=== PATIENT | male | born 1960 | race Caucasian/White ===

== ENCOUNTER 2021-11-25 04:15 | Emergency (ER) | payer OTHER, SELFPAY ==
[2021-11-25] VITALS (18 sets, daily range): BP systolic 116–147; BP diastolic 74–97; PULSE 70–138; RESP 12–26; TEMP 36.6; O2SAT 91–96
--- NOTE | ~2021-11-25 | CT_ITS ---
EXAMINATION: CT brain wo con DATE: 11/25/2021 05:08 INDICATION: Seizure. TECHNIQUE: Computed tomography (CT) of the head was performed without intravenous contrast. The mA wa s adjusted according to patient size. Iterative reconstruction technique was employed. The dose-lengt h product was 681.00 mGy-cm. COMPARISON: Brain MRI 06/12/2003 FINDINGS: There is no intracranial hemorrhage, acute infarction, or abnormal intracranial mass lesion . The ventricles are normal in size. There is mild mucosal thickening in the paranasal sinuses. The m astoid air cells are normal. There are old fracture deformities of the nasal bones. IMPRESSION: 1. Normal brain. Reviewed, dictated and finalized at location A. IMPRESSION: 1. Normal brain.
--- NOTE | ~2021-11-25 | XR_ITS ---
EXAMINATION: XR shoulder RT min 2V DATE: 11/25/2021 06:10 INDICATION: Shoulder pain post seizure TECHNIQUE: AP internally and externally rotated, AP oblique externally rotated and transscapular Y vi ews of the right shoulder were obtained. COMPARISON: None FINDINGS: Normal alignment at the right shoulder. No fracture.Mild right glenohumeral and acromioclavicular os teoarthritis. Soft tissues are unremarkable. This portion of the right lung is clear. IMPRESSION: Mild right acromioclavicular glenohumeral osteoarthritis. No acute osseous abnormalities. Reviewed, dictated and finalized at location A. IMPRESSION: Mild right acromioclavicular glenohumeral osteoarthritis. No acute osseous abno rmalities.
--- NOTE | 2021-11-25 04:18 | ECG_ITS ---
Measurements Intervals [place] Rate: 126 P: 19 [place]: 149 QRS: 57 QRSD: 100 T: 51 QT: 315 QTc: 457 Interpretive Statements SINUS TACHYCARDIA DELAYED PRECORDIAL R/S TRANSITION ABNORMAL ECG NO PREVIOUS ECG AVAILABLE FOR COMPARISON Electronically Signed On 11-25-2021 7:11:03 CDT by Papo Sandoval D.O.
[2021-11-25 04:27] LABS: Glucose Point of Care 126 mg/dl (65-105)
[2021-11-25 04:30] LABS: Basophils Percent Auto 0.3 % (0.2-1.2); Hemoglobin 12.8 g/dL (14.0-18.0); Immature Granulocyte Absolute 0.03 K/mm3 (0.00-0.031); Lymphocytes Absolute Auto 2.04 K/mm3 (0.9-3.2); Lymphocytes Percent Auto 66.2 % (18.3-44.2); Mean Corpuscular Hemoglobin 28.5 pg (26-34); Mean Corpuscular Volume 89.1 fl (80-100); Mean Platelet Volume 9.2 fl (7.4-10.4); Monocytes Absolute Auto 0.5 K/mm3 (0.1-0.6); Monocytes Percent Auto 14.6 % (2.6-8.5); Neutrophils Absolute Auto 0.6 K/mm3 (1.3-6.7); Neutrophils Percent Auto 17.9 % (45.5-73.1); Platelet Count Result 211 k/mm3 (150-375); Red Blood Count 4.49 M/mm3 (4.6-6.20); Red Cell Distribution Width 13.4 % (11.5-14.5); White Blood Count 3.1 K/mm3 (4.5-10.0)
--- NOTE | 2021-11-25 04:30 | ED.GENADULT ---
HPI - General Adult General Chief complaint: Seizure Stated complaint: seizure - last one 8 yrs ago Time Seen by Provider: 11/25/21 04:18 History of Present Illness HPI narrative: 61-year-old male with history of seizure presenting to the emergency department for evaluation after having first seizure in approximately 8 years. Patient was in bed when he had the seizure. states that the seizure lasted approximately 3 minutes and patient had a postictal phase close to 10 minutes. felt that the postictal phase was longer than usual. called EMS. Upon arrival to the emergency department patient is alert and appropriate. Patient does take Keppra for his seizures and does not suspect that he missed a dose. Patient states that he was up later than usual and that he had difficulty falling asleep even after going to bed late. Patient states he does feel tired but denies any other complaint. Patient has no shoulder injury. Patient did not bite his tongue. Patient denies missing any medications. Patient denies any recent illnesses coughs colds or fevers. Patient had previously taken both Dilantin and Keppra but only takes Keppra at this time. Related Data Home Medications Medication Instructions Recorded Confirmed finasteride 5 mg 11/25/21 levetiracetam 750 mg 11/25/21 lisinopril 11/25/21 tamsulosin 0.4 mg 11/25/21 Allergies Allergy/AdvReac Type Severity Reaction Status Date / Time No Known Allergies Allergy Verified 11/25/21 04:33 Review of Systems Review of Systems: CONSTITUTIONAL: Denies fever, chills, or sweats. EYES: Denies visual changes, redness, or discharge. ENT: Denies rhinorrhea, congestion, sore throat, or otalgia. CARDIOVASCULAR: Denies chest pain, palpitations, or edema. RESPIRATORY: Denies cough or dyspnea. GASTROINTESTINAL: Denies abdominal pain, nausea, vomiting, or diarrhea. GENITOURINARY: Denies dysuria or hematuria. SKIN: Denies rash or itching. MUSCULOSKELETAL: Denies back pain, joint pain, or myalgia. NEUROLOGIC: Seizure, see HPI PSYCHIATRIC: Denies anxiety or depression. Exam Narrative: APPEARANCE: Well appearing, no pain, no distress, well-nourished. HEAD: normocephalic, atraumatic. EYES: PERRLA/EOMI, conjunctivae clear. NOSE: Normal no drainage EARS:TMS clear with good light reflex. THROAT: Pharynx clear, no exudate. NECK: Supple. No adenopathy, no masses. RESPIRATORY: Airway patent, respirations nonlabored. Clear to auscultation bilaterally, no rales, rhonchi, wheezing. CARDIOVASCULAR: Regular rate and rhythm without murmurs rubs or gallops. ABDOMINAL: Soft, nontender, nondistended, normal bowel sounds MUSCULOSKELETAL: Moves all extremities. Strength/ROM intact, No edema, No calf tenderness. NEURO: Alert. Cranial nerves II through XII intact. Normal strength and reflexes, normal coordination, no drift or ataxia. Patient is alert and appropriate SKIN: Warm, dry. Normal Color Course Course Emergency Course: As the patient became more appropriate he recalls that he did miss his dose of Keppra. Patient states he usually gets his Keppra dose and a bottle but the only medication that they had available this month was in blister pack. Patient does not recall taking the blister pack last night. Patient's normal dose is 750 mg. Patient was treated with 1 g of Keppra IV. Vital Signs Vital signs: Vital Signs Temperature 97.8 F 11/25/21 04:15 Pulse Rate 135 H 11/25/21 04:15 Respiratory Rate 20 11/25/21 04:15 Blood Pressure 147/89 H 11/25/21 04:15 Pulse Oximetry 96 11/25/21 04:15 Oxygen Delivery Room Air 11/25/21 04:15 Temperature 97.8 F 11/25/21 04:15 Pulse Rate 70 11/25/21 07:03 Respiratory Rate 15 11/25/21 07:03 Blood Pressure 120/74 11/25/21 07:03 Pulse Oximetry 96 11/25/21 07:03 Oxygen Delivery Room Air 11/25/21 04:15 Medical Decision Making Vital Signs Vital Signs: Vital Signs Temperature 97.8 F 11/25/21 04:15 Pulse
[2021-11-25] MEDS: SODIUM CHLORIDE 0.9% IV 1,000 ML 999 ML IV CONT (04:36)
[2021-11-25 04:40] LABS: Alanine Aminotransferase 18 U/L (6-50); Albumin Level 4.3 g/dL (3.5-5.1); Alkaline Phosphatase 60 U/L (38-126); Anion Gap 15 mmol/L (8-16); Aspartate Amino Transferase 26 U/L (17-59); Bilirubin,Total 0.5 mg/dL (0.2-1.3); Blood Urea Nitrogen 16 mg/dL (9-20); Calcium 9.4 mg/dL (8.4-10.2); Carbon Dioxide 19 mmol/L (22-30); Chloride 108 mmol/L (98-107); Estimated Glomerular Filt Rate > 60; Glucose 131 mg/dL (65-110); Sodium 142 mmol/L (137-145)
[2021-11-25] MEDS: levETIRAcetam 1000MG/NACL100ML 1,000 MG/100 ML BAG 400 MG IVPB (04:43)
--- NOTE | 2021-11-25 04:47 | PC.NURSE ---
Patient being taken to CT via stretcher.
--- NOTE | 2021-11-25 05:23 | PC.NURSE ---
Patient calls this nurse into room to state I feel like my right shoulder is slipping out. When patient states this he rotates his right shoulder and states slipping out. Patient states this occurs with pain intermittently. ERP notified, orders placed. Patient instructed to let his arm/shoulder rest and xray is ordered. Sling being placed.
[2021-11-25 06:10] LABS: Appearance Urine Clear (Clear); Bilirubin Urine Negative (Negative); Blood Urine 1+ (Negative); Color Urine Yellow (Yellow); Glucose Urine UA Negative (Negative); Ketones Urine Negative (Negative); Leukocyte Esterase Ur Negative LEU/UL (Negative); Nitrate Urine Negative (Negative); Protein Urine Negative (Negative); Specific Grav Ur >= 1.030 (1.001-1.035); Urobilinogen Urine 0.2 mg/dL (<2.0); pH Urine 5.5 (5.0-9.0)
[2021-11-25 06:15] LABS: Mucus Urine Rare /lpf; WBC Urine 0-3 /hpf
[2021-11-25 06:23] LABS: Add Urine Microscopic? YES
[2021-11-28 10:48] LABS: Levetiracetam Keppra <2.0
== END 2021-11-25 07:05 | disposition home or self-care (01) ==
PROVIDERS: Emergency Provider Emergency Medicine; PCP Internal Medicine
DX: G40.909 Epilepsy, unspecified, not intractable, without status epilepticus (principal); S46.911A Strain of unspecified muscle, fascia and tendon at shoulder and upper arm level, right arm, initial encounter; W19.XXXA Unspecified fall, initial encounter
CPT/HCPCS: 36415; 70450; 73030; 80053; 80177; 81001; 82948; 85025; 93005; 96361; 96374; 99284; A4565; J1953; J7030

== ENCOUNTER 2022-06-26 16:33 | Outpatient (CLI) | payer OTHER, SELFPAY ==
--- NOTE | ~2022-06-26 | XR_ITS ---
EXAMINATION: XR chest 2V DATE: 06/26/2022 17:17 INDICATION: Cough TECHNIQUE: PA and lateral views of the chest are obtained. COMPARISON: 06/18/2022 FINDINGS: There are persistent airspace opacities of the left lower lobe without significant change. No pleural effusion or pneumothorax. The cardiomediastinal silhouette is normal. There is mild thorac ic spondylosis. Calcified pulmonary nodules and calcified bilateral hilar and mediastinal lymph nodes are consistent with old granulomatous disease. IMPRESSION: 1. Persistent airspace opacities of the left lower lobe, likely pneumonia. Consider followup radiogra phs or chest CT in six weeks if symptoms persist after appropriate therapy or if the patient is at hi gh risk for malignancy. Reviewed, dictated and finalized at location F. IMPRESSION: 1. Persistent airspace opacities of the left lower lobe, likely pneumonia. Cons ider followup radiographs or chest CT in six weeks if symptoms persist after ap propriate therapy or if the patient is at high risk for malignancy.
== END 2022-06-26 16:34 | disposition home or self-care (01) ==
LOC: CHSIMG 16:35
PROVIDERS: PCP Internal Medicine; Visit Provider Internal Medicine
DX: J18.9 Pneumonia, unspecified organism (principal); R05.9 Cough, unspecified; R91.8 Other nonspecific abnormal finding of lung field
CPT/HCPCS: 71046

== ENCOUNTER 2022-11-28 12:18 | Outpatient (CLI) | payer OTHER, SELFPAY ==
[2022-11-28 13:36] LABS: Prostate Specific Antigen 3.9 ng/mL (< OR = 4.0)
[2022-12-03 13:00] LABS: Reference Lab Test Name FLOW CYTOMETRY
== END 2022-11-28 12:19 | disposition home or self-care (01) ==
PROVIDERS: PCP Internal Medicine; Visit Provider Urology
DX: D72.820 Lymphocytosis (symptomatic) (principal); R97.20 Elevated prostate specific antigen [PSA]
CPT/HCPCS: 36415; 84153; 88184; 88185; 88189

== ENCOUNTER 2024-04-20 16:46 | Outpatient (CLI) | payer OTHER, SELFPAY ==
--- NOTE | ~2024-04-20 | XR_ITS ---
CHEST RADIOGRAPH, PA AND LATERAL CLINICAL HISTORY: COUGH . COMPARISON: 05/04/2023 TECHNIQUE: PA and lateral views of the chest. FINDINGS The cardiomediastinal silhouette is unremarkable. Multiple calcified granulomas within the bilateral lung davis, stable from prior. Redemonstration of linear densities within the left lung base, likely chronic. The remainder of the lungs are otherwise clear. IMPRESSION: Stable radiographic evaluation of the chest, without focal infiltrate or effusion. Reviewed, dictated and finalized at location A. [facility] IMPRESSION: Stable radiographic evaluation of the chest, without focal infiltrate or effusi on.
--- OUTSIDE RECORDS SUMMARY | 2024-04-20 16:50 | XMS_ITS | Referral Summary ---
Author Organization [facility] Address [address] [place] [address] Care Team Providers Care Manager Library Name Role Phone Kip Abreu MD Primary Care Provider [phone] Allergies Active Allergy Reactions Criticality Noted Date Comments Pollen Extracts Sneezing Low 06/08/2018 Medications levETIRAcetam (KEPPRA) 750 mg tablet 2 (two) times a day 0 9 Active tamsulosin (FLOMAX) 0.4 mg extended release capsule 2 capsules once daily 94 9 Active lisinopril (PRINIVIL,ZESTR IL) 20 mg tablet daily 0 9 Active cyanocobalamin, vitamin B-12, 1,000 mcg/mL drops Take by mouth daily Active acetaminophen-c odeine (TYLENOL with CODEINE #3) 300-30 mg per tabletIndicatio ns:Neoplasm of uncertain behavior of skin Take 1 tablet by mouth every 4 (four) hours as needed for pain 5 tablet 0 Active Additional Information Patient not taking.Reported on 06/14/2022 finasteride (PROSCAR) 5 mg tablet Take 1 tablet (5 mg total) by mouth daily 3 Active albuterol HFA (PROVENTIL HFA,VENTOLIN HFA,PROAIR HFA) 90 mcg/actuation inhalerIndicati ons:Wheezing Inhale 2 puffs every 6 (six) hours as needed for wheezing 3 each 4 3 Active Active Problems No known active problems Immunizations Name Administration Dates Next Due Flucelvax Influenza Quad MDI 12/28/2013 Influenza, Quadrivalent, Lisa l Culture-based MDCK, Preservative Free, Antibiotic Free, Intramuscular 12/09/2019 Influenza, Quadrivalent, Spl it, Preservative Free, Intramuscular 12/16/2018 Influenza, Trivalent, IM (MDV) 01/02/2015 Influenza, Unspecified 12/20/2015 Tdap 07/22/2013 ZOSTER Recombinant 05/20/2018,10/26/2017 Social History Tobacco Use Types Packs/Day Years Used Date Smoking Tobacco: Former Smokeless Tobacco: Never Comments:Ocassionally while in Personal Safety Answer Date Recorded Getting School Help Needed Not on file 02/23 Sex and Gender Information Value Date Recorded Sex Assigned at Not on file 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 Gender Identity Not on file Sexual Orientation Not on file Last Filed Vital Signs Vital Sign Reading Time Taken Comments Blood Pressure 116/79 10/08/2023 2:12 PM CDT Pulse 83 10/08/2023 2:12 PM CDT Temperature 36.3 C (97.3 F) 10/08/2023 2:12 PM CDT Respiratory Rate 18 02/26/2023 2:06 PM ELECTRONIC SCALE TESTER Oxygen Saturation 95% 10/08/2023 2:12 PM CDT Inhaled Oxygen Concentration - - Weight 102.9 kg (226 lb 12.8 oz) 10/08/2023 2:12 PM CDT Height 188.5 cm (6' 2.21 ) 10/08/2023 2:12 PM CD T Body Mass Index 28.95 10/08/2023 2:12 PM CDT Plan of Treatment Not on file Insurance [employer] OPEN ACCESS [employer] OPEN ACCESS [employer] OPEN ACCESS Care Teams Manager Library Relationship Specialty Start Date End Date Kip Abreu MD [address] [place] [address] PCP - General 06/03/17
--- OUTSIDE RECORDS SUMMARY | 2024-04-20 16:50 | XMS_ITS | Encounter Summary ---
Author Organization [facility] Address [address] [place] [address] Phone Care Team Providers Care Securities Trader Name Role Phone Kip Abreu MD Primary Care Provider [phone] Encounter Details Date Type Department Care Team (Latest Contact Info) Description 01/03/2020 Orders Only [facility] Scanning, Provider Social History Tobacco Use Types Packs/Day Years Used Date Smoking Tobacco: Former Smokeless Tobacco: Never Comments:Ocassionally while in Sex and Gender Information Value Date Recorded Sex Assigned at Not on file Legal Sex Male 4:53 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 Gender Identity Not on file Sexual Orientation Not on file documented as of this encounter Plan of Treatment Not on file documented as of this encounter Procedures Procedure Name Priority Date/Time Associated Diagnosis Comments SCAN - LABS 01/03/2020 documented in this encounter Results * SCAN - LABS (01/03/2020) us Provider Scanning Final Result documented in this encounter Visit Diagnoses Not on filedocumented in this encounter Care Teams Securities Trader Relationship Specialty Start Date End Date Kip Abreu MD [address] [place] [address] PCP - General 06/03/17 documented as of this encounter
--- OUTSIDE RECORDS SUMMARY | 2024-04-20 16:50 | XMS_ITS | Encounter Summary ---
Author Organization [facility] Address [address] [place] [address] Phone Care Team Providers Care Graphite Disk Assembler Name Role Phone Kip Abreu MD Primary Care Provider [phone] Encounter Details Date Type Department Care Team (Latest Contact Info) Description 07/14/2023 Orders Only [facility] Scanning, Provider Social History Tobacco Use Types Packs/Day Years Used Date Smoking Tobacco: Former Smokeless Tobacco: Never Comments:Ocassionally while in Personal Safety Answer Date Recorded Getting School Help Needed Not on file 02/23 Sex and Gender Information Value Date Recorded Sex Assigned at Not on file 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 Gender Identity Not on file Sexual Orientation Not on file documented as of this encounter Plan of Treatment Not on file documented as of this encounter Procedures Procedure Name Priority Date/Time Associated Diagnosis Comments SCAN - LABS 07/14/2023 documented in this encounter Results * SCAN - LABS (07/14/2023) us Provider Scanning Final Result documented in this encounter Visit Diagnoses Not on filedocumented in this encounter Care Teams Graphite Disk Assembler Relationship Specialty Start Date End Date Kip Abreu MD [address] [place] [address] PCP - General 06/03/17 documented as of this encounter
--- OUTSIDE RECORDS SUMMARY | 2024-04-20 16:50 | XMS_ITS | Encounter Summary ---
Author Organization [facility] Address [address] [place] [address] Phone Care Team Providers Care Bakery Worker Conveyor Line Name Role Phone Kip Abreu MD Primary Care Provider Encounter Details Date Type Department Care Team (Late st Contact Info) Description 02/25/2019 Orders Only [facility] Scanning, Provider Social History Tobacco Use Types Packs/Day Years Used Date Smoking Tobacco: Former Smokeless Tobacco: Never Comments:Ocassionally while in Sex and Gender Information Value Date Recorded Sex Assigned at Not on file Legal Sex Male 4:53 AM 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 PRODUCE SORTER Gender Identity Not on file Sexual Orientation Not on file documented as of this encounter Plan of Treatment Not on file documented as of this encounter Procedures Procedure Name Priority Date/Time Associated Diagnosis Comments SCAN - LABS 02/25/2019 documented in this encounter Results * SCAN - LABS (02/25/2019) us Provider Scanning Final Result documented in this encounter Visit Diagnoses Not on filedocumented in this encounter Care Teams Bakery Worker Conveyor Line Relationship Specialty Start Date End Date Kip Abreu MD [address] [place] [address] PCP - General 06/03/17 documented as of this encounter
--- OUTSIDE RECORDS SUMMARY | 2024-04-20 16:50 | XMS_ITS | Clinical Summary ---
Author Organization [facility] Address [address] [place] [address] Care Team Providers Care Public Health Doctor Name Role Phone Kip Abreu MD Primary Care Provider [phone] Allergies Active Allergy Reactions Criticality Noted Date [...] Unspecified 12/20/2015 Tdap 07/22/2013 ZOSTER Recombinant 05/20/2018,10/26/2017 Surgical History Surgery Date Site/Laterality Comments SINUS SURGERY Medical History Medical History Date Comments Seizure disorder (CMS/HCC) (HCC) Hypertension Elevated PSA BPH (benign prostatic hyperplasia) Prostatitis NEHA (obstructive sleep apnea) Chronic rhinitis Family History Medical History Relation Name Comments No Known Problems Father Hypertension Mother Relation Name Status Comments Father Alive Mother Alive Social History Tobacco Use Types Packs/Day Years Used Date Smoking Tobacco: Former Smokeless Tobacco: Never Comments:Ocassionally while in INDOM Personal Safety Answer Date Recorded Getting School Help Needed Not on file 02/23 Sex and Gender Information Value Date Recorded Sex Assigned at Not on file Legal Sex Male 4:53 AM SALES ADMINISTRATION SPECIALIST Gender Identity Not on file Sexual Orientation Not on file Obstetrics History Last Filed Vital Signs Vital Sign Reading Time Taken Comments Blood Pressure 116/79 10/08/2023 2:12 PM CDT Pulse 83 10/08/2023 2:12 PM CDT Temperature 36.3 C (97.3 F) 10/08/2023 2:12 PM CDT Respiratory Rate 18 02/26/2023 2:06 PM SALES ADMINISTRATION SPECIALIST Oxygen Saturation 95% 10/08/2023 2:12 PM CDT Inhaled Oxygen Concentration - - Weight 102.9 kg (226 lb 12.8 oz) 10/08/2023 2:12 PM CDT Height 188.5 cm (6' 2.21 ) 10/08/2023 2:12 PM CD T Body Mass Index 28.95 10/08/2023 2:12 PM CDT Plan of Treatment Health Maintenance Due Date Last Done Comments Colon Cancer Screening-Colonoscopy 1960 Depression Screening 1960 Hepatitis C Screening 1960 Prostate Cancer Screening-PSA 1960 Pneumococcal vaccine <65 (1 of 2 - PCV) 02/05/1966 Hepatitis B Screening 02/05/1978 Regular Well Visit/Exam 18-64 02/05/1978 DTaP/Tdap/Td Vaccine (2 - Td or Tdap) 07/23/2023 07/22/2013 Influenza Vaccine (#1) 2023 , 12/16/2018, 12/20/2015, Additional history exists Zoster Vaccine Completed 05/20/2018, 10/26/2017 Insurance [employer] OPEN ACCESS [employer] OPEN ACCESS Care Teams Public Health Doctor Relationship Specialty Start Date End Date Kip Abreu MD [address] [place] [address] PCP - General 06/03/17
--- OUTSIDE RECORDS SUMMARY | 2024-04-20 16:50 | XMS_ITS | Encounter Summary ---
Author Organization [facility] Address [address] [place] [address] Phone Care Team Providers Care Riddler Operator Name Role Phone Kip Abreu MD Primary Care Provider [phone] Encounter Details Date Type Department Care Team (Latest Contact Info) Description 12/14/2019 Orders Only [facility] Scanning, Provider Social History Tobacco Use Types Packs/Day Years Used Date Smoking Tobacco: Former Smokeless Tobacco: Never Comments:Ocassionally while in Sex and Gender Information Value Date Recorded Sex Assigned at Not on file Legal Sex Male 4:53 AM LIFE SCIENCES TEACHER Gender Identity Not on file Sexual Orientation Not on file documented as of this encounter Plan of Treatment Not on file documented as of this encounter Procedures Procedure Name Priority Date/Time Associated Diagnosis Comments SCAN - LABS 12/14/2019 documented in this encounter Results * SCAN - LABS (12/14/2019) us Provider Scanning Final Result documented in this encounter Visit Diagnoses Not on filedocumented in this encounter Care Teams Riddler Operator Relationship Specialty Start Date End Date Kip Abreu MD [address] [place] [address] PCP - General 06/03/17 documented as of this encounter
--- OUTSIDE RECORDS SUMMARY | 2024-04-20 16:50 | XMS_ITS | Encounter Summary ---
Author Organization [facility] Address [address] [place] [address] Phone Care Team Providers Care Book Salesman Name Role Phone Kip Abreu MD Primary Care Provider [phone] Encounter Details Date Type Department Care Team (Latest Contact Info) Description 07/20/2023 Orders Only [facility] Scanning, Provider Social History Tobacco Use Types Packs/Day Years Used Date Smoking Tobacco: Former Smokeless Tobacco: Never Comments:Ocassionally while in Personal Safety Answer Date Recorded Getting School Help Needed Not on file 02/23 Sex and Gender Information Value Date Recorded Sex Assigned at Not on file Legal Sex Male 4:53 AM SAMPLE GRINDER Gender Identity Not on file Sexual Orientation Not on file documented as of this encounter Plan of Treatment Not on file documented as of this encounter Procedures Procedure Name Priority Date/Time Associated Diagnosis Comments SCAN - LABS 07/20/2023 documented in this encounter Results * SCAN - LABS (07/20/2023) us Provider Scanning Final Result documented in this encounter Visit Diagnoses Not on filedocumented in this encounter Care Teams Book Salesman Relationship Specialty Start Date End Date Kip Abreu MD [address] [place] [address] PCP - General 06/03/17 documented as of this encounter
--- OUTSIDE RECORDS SUMMARY | 2024-04-20 16:50 | XMS_ITS | Clinical Summary ---
Author Organization [facility] Address [facility] [place] [address] Care Team Providers Care Glue Maker Bone Name Role Phone Unavailable Primary Care Provider Unavailabl e Social History Tobacco Use Types Packs/Day Years Used Date Smoking Tobacco: Former Sex and Gender Information Value Date Recorded Sex Assigned at Not on file Legal Sex Male 11:02 PM CDT Gender Identity Not on file Sexual Orientation Not on file Plan of Treatment Health Maintenance Due Date Last Done Comments Colorectal Cancer Screening Colonoscopy (10 Years) 1960 Annual Physical 02/05/1963 Hepatitis C 02/05/1978 DTaP, Tdap and Td Vaccines ( 1 - Tdap) 02/05/1979 Zoster Vaccines (1 of 2) 02/05/2010 COVID-19 Vaccine (2023-2 5 season) 2023 Influenza Adult (#1) 2023 RSV Immunization or 60+ Years (1 - 1-dose 75+ series) 02/05/2035 Meningococcal B Vaccine Aged Out No l onger eligible based on patient's age to complete this topic Meningococcal Vaccine Aged Out No vishnu heather eligible based on patient's age to complete this topic Pneumococcal Vaccine: Pediat rics (0 to 5 Years) and At-Risk Patients (6 to 64 Years) Aged Out No longer eligible b ased on patient's age to complete this topic RSV Immunizations Under 20 Months Aged Out No longer eligible based on patient's age to complete this topic
[2024-04-20 18:27] LABS: SARS-CoV-2 RNA PCR Negative (Negative)
[2024-04-20 18:28] LABS: Influenza A QL RT-PCR Positive (Negative); Influenza B QL RT-PCR Negative (Negative); RSV RNA, RT-PCR Negative (Negative)
== END 2024-04-20 16:47 | disposition home or self-care (01) ==
PROVIDERS: PCP Internal Medicine; Visit Provider Internal Medicine
DX: R05.9 Cough, unspecified (principal)
CPT/HCPCS: 71046; 87637

== ENCOUNTER 2025-03-03 11:12 | Emergency (ER) | payer OTHER, SELFPAY ==
--- NOTE | ~2025-03-03 | CT_ITS ---
EXAMINATION: CT abdomen pelvis w con DATE: 03/03/2025 12:52 INDICATION: Right lower quadrant abdominal pain TECHNIQUE: Computed tomography (CT) of the abdomen and pelvis was performed with 100 mL Omnipaque-350 intravenous contrast. Automated exposure control and iterative reconstruction technique were employed. The dose-length product was 451.97 mGy-cm. COMPARISON: None FINDINGS: Discoid atelectasis in the bilateral lower lobes and in the posterior lingula. There are multiple small calcified nodules in the lingula and anterobasilar left lower lobe which along with a few scattered hepatic and multiple scattered splenic calcifications are consistent with old granulomatous disease. Tiny bilateral pleural effusions. Heart size is normal. Small pericardial effusion. Multiple scattered low-attenuation hepatic cysts the largest measuring 1.8 cm and the left hepatic lobe and the majority measuring less than 1 cm. Calcified gallstones in the nondilated gallbladder with no wall thickening or pericholecystic infiltrate showing to suggest acute cholecystitis. Common bile duct is normal in caliber and there is no intrahepatic biliary ductal dilation Spleen, pancreas and bilateral adrenal glands are normal. Again seen are numerous lesions throughout both kidneys the majority demonstrating low- attenuation consistent with simple cysts. There are also several at both kidneys with higher attenuation most likely to represent additional complex proteinaceous/hemorrhagic cyst although in the absence of noncontrast imaging to assess for enhancement solid neoplasm cannot be excluded for any of the individual intermediate attenuation lesions. There is. Right perinephric fluid and stranding with right retroperitoneal edema extending caudally along the aorta and inferior vena cava. Extensive colonic diverticulosis with descending and sigmoid colon predominance and without adjacent inflammatory stranding to suggest diverticulitis. Small bowel and appendix are normal. Bladder is normal. Prostatomegaly measuring 5.0 x 4.3 cm. 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 Minimal nonspecific ascites in the deep pelvis which may be reactive. No abscess or free intraperineal gas. No pathologically enlarged abdominal or pelvic lymphadenopathy. Mild to moderate lumbar and lower thoracic spondylosis. L1 hemangioma with characteristic thickened vertical trabecular pattern. . IMPRESSION: 1. Again seen are numerous bilateral simple and complex renal cysts now with asymmetric perinephric fluid and stranding about the right kidney suggesting possible right renal cyst rupture. Differential would include less likely acute interstitial pancreatitis or duodenitis. Correlate with lipase levels. Of note, in the absence of noncontrast imaging to assess for enhancement, renal neoplasm cannot be excluded for any of the individual renal lesions with greater than simple fluid attenuation. 2. Tiny bilateral pleural effusions and small pericardial effusion. 3. Minimal amount of nonspecific likely reactive ascites in the deep pelvis. 4. Cholelithiasis without findings of acute cholecystitis or biliary ductal dilation.. 5. Prostatomegaly. Reviewed, dictated and finalized at location A. RAGE INSPECTION MACHINE TENDER IMPRESSION: 1. Again seen are numerous bilateral simple and complex renal cysts now with as ymmetric perinephric fluid and stranding about the right kidney suggesting poss ible right renal cyst rupture. Differential would include less likely acute int erstitial pancreatitis or duodenitis. Correlate with lipase levels. Of note, in the absence of noncontrast imaging to assess for enhancement, renal neoplasm c annot be excluded for any of the individual renal lesions with greater than sim ple fluid attenuation. 2. Tiny bilateral pleural effusions and small pericardial effusion. 3. Minimal amount of nonspecific likely reactive ascites in the deep pelvis. 4. Cholelithiasis without findings of acute cholecystitis or biliary ductal dil ation.. 5. Prostatomegaly.
[2025-03-03 11:16] VITALS: BP 143/70; PULSE 55; RESP 18; TEMP 36.6; O2SAT 100
--- OUTSIDE RECORDS SUMMARY | 2025-03-03 11:44 | XMS_ITS | Encounter Summary ---
Author Organization [facility] Address [address] [place] [address] Phone Care Team Providers Care Club Director Name Role Phone Kip Abreu MD Primary Care Provider [phone] Encounter Details Date Type Department Care Team [...] on file Legal Sex Male 4:53 AM STITCH WHEELER Gender Identity Not on file Sexual Orientation [...] on filedocumented in this encounter Care Teams Club Director Relationship Specialty Start Date End Date Kip Abreu MD [address] [place] [address] PCP - General 06/03/17 documented as of this encounter
--- OUTSIDE RECORDS SUMMARY | 2025-03-03 11:44 | XMS_ITS | Clinical Summary ---
Author Organization [facility] Address [facility] [place] [address] Care Team Providers Care Bunk House Worker Name Role Phone Unavailable Primary Care Provider [...] Colorectal Cancer Screening Colonoscopy (10 Years) 1960 Hepatitis C 02/05/1978 DTaP, Tdap and Td Vaccines ( 1 - Tdap) 02/05/1979 Pneumococcal Vaccine: 50+ Ye ars (1 of 1 - PCV) 02/05/2010 Zoster Vaccines (1 of 2) 02/05/2010 COVID-19 Vaccine ( - 2024-2 6 season) 2024 Influenza Adult (#1) 2024 RSV Immunization or 60+ Years (1 - 1-dose 75+ series) 02/05/2035 Hepatitis A Vaccines Aged Out No long er eligible based on patient's age to complete this topic Meningococcal B Vaccine Aged Out No l onger eligible based on patient's age to complete this topic Meningococcal Vaccine Aged Out No vishnu heather eligible based on patient's age to complete this topic RSV Immunizations Under 20 Months Aged Out No longer eligible based on patient's age to complete this topic
--- OUTSIDE RECORDS SUMMARY | 2025-03-03 11:44 | XMS_ITS | Encounter Summary ---
Author Organization 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
--- OUTSIDE RECORDS SUMMARY | 2025-03-03 11:44 | XMS_ITS | Encounter Summary ---
Author Organization [facility] Address [address] [place] [address] Phone Care Team Providers Care Apprentice Architect Name Role Phone Kip Abreu MD Primary Care Provider [phone] Encounter Details Date Type Department Care Team (Latest Contact Info) Description 01/03/2020 Orders Only [facility] Scanning, Provider Social History Tobacco Use Types Packs/Day Years Used Date Smoking Tobacco: Former Smokeless Tobacco: Never Comments:Ocassionally while in Sex and Gender Information Value Date Recorded Sex Assigned at Not on file 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
--- OUTSIDE RECORDS SUMMARY | 2025-03-03 11:44 | XMS_ITS | Clinical Summary ---
Author Organization [facility] Address [address] [place] [address] Care Team Providers Care Manager Fine Name Role Phone Kip Abreu MD Primary Care Provider [phone] Allergies Active Allergy Reactions Criticality Noted Date [...] Active Problems No known active problems Immunizations Immunization Administration Dates Next Due Flucelvax Influenza Quad MDI 12/28/2013 Influenza, Quadrivalent, Lisa l Culture-based MDCK, Preservative Free, Antibiotic Free, Intramuscular 12/09/2019 Influenza, Quadrivalent, Spl it, Preservative Free, Intramuscular 12/16/2018 Influenza, Trivalent, IM (MDV) 01/02/2015 Influenza, Unspecified 12/20/2015 Tdap 07/22/2013 ZOSTER Recombinant 05/20/2018,10/26/2017 Surgical History Surgery Date Site/Laterality Comments SINUS SURGERY Medical History Medical History Date Comments Seizure disorder (HCC) Hypertension Elevated PSA BPH (benign prostatic [...] on file 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 Gender Identity Not on file Sexual Orientation Not on file Last Filed Vital Signs Vital Sign Reading Time Taken Comments Blood Pressure 116/79 10/08/2023 2:12 PM CDT Pulse 83 10/08/2023 2:12 PM CDT Temperature 36.3 C (97.3 F) 10/08/2023 2:12 PM CDT Respiratory Rate 18 02/26/2023 2:06 PM LAYOUT WORKER Oxygen Saturation 95% 10/08/2023 2:12 PM CDT Inhaled Oxygen Concentration - - Weight 102.9 kg (226 lb 12.8 oz) 10/08/2023 2:12 PM CDT Height 188.5 cm (6' 2.21) 10/08/2023 2:12 PM CD T Body Mass Index 28.95 10/08/2023 2:12 PM CDT Plan of Treatment Health Maintenance Due Date Last Done Comments Colon Cancer Screening-Colonoscopy 1960 Depression Screening 1960 Fall Risk Assessment 1960 Hepatitis C Screening 1960 Prostate Cancer Screening-PSA 1960 Hepatitis B Screening 02/05/1978 Pneumococcal vaccine 65+ (1 of 1 - PCV) 02/05/2010 DTaP/Tdap/Td Vaccine (2 - Td or Tdap) 07/23/2023 07/22/2013 Influenza Vaccine (#1) 2024 0, 12/16/2018, 12/20/2015, Additional history exists Abdominal Aortic Aneurysm (A AA) Screen 02/05/2025 Well Visit 65+ 02/05/2025 Zoster Vaccine Completed 05/20/2018, 10/26/2017 Insurance [employer] OPEN ACCESS HEALTHLINK OPEN ACCESS [employer] OPEN ACCESS Care Teams Manager Fine Relationship Specialty Start Date End Date Kip Abreu MD [address] [place] [address] PCP - General 06/03/17
--- OUTSIDE RECORDS SUMMARY | 2025-03-03 11:44 | XMS_ITS | Encounter Summary ---
Author Organization [facility] Address [address] [place] [address] Phone Care Team Providers Care Bereavement Program Coordinator Name Role Phone Kip Abreu MD Primary Care Provider [phone] Encounter Details Date Type Department Care Team (Latest Contact Info) Description 12/14/2019 Orders Only [facility] Scanning, Provider Social History Tobacco Use Types Packs/Day Years Used Date Smoking Tobacco: Former Smokeless Tobacco: Never Comments:Ocassionally while in Sex and Gender Information Value Date Recorded Sex Assigned at Not on file 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
--- OUTSIDE RECORDS SUMMARY | 2025-03-03 11:44 | XMS_ITS | Encounter Summary ---
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
[2025-03-03 12:13] LABS: Hematocrit 37.7 % (42.0-52.0); Hemoglobin 12.1 g/dL (14.0-18.0); Immature Granulocyte Percent A 1.6 % (0-0.5); Lymphocytes Absolute Auto 0.79 K/mm3 (0.9-3.2); Mean Corpuscular HGB Conc 32.1 g/dl (32-36); Mean Corpuscular Hemoglobin 27.3 pg (26-34); Mean Corpuscular Volume 85.1 fl (80-100); Nucleated Red Blood Cells Absolute Auto 0.000 K/mm3 (0.0-0.012); Nucleated Red Blood Cells Perc 0.0 % (0.0-0.2); Platelet Count Result 213 k/mm3 (150-375); Red Blood Count 4.43 M/mm3 (4.6-6.20); White Blood Count 4.4 K/mm3 (4.5-10.0)
[2025-03-03] MEDS: SODIUM CHLORIDE 0.9% IV 1,000 ML 999 ML IV CONT (12:13)
[2025-03-03] MEDS: MORPHINE SULFATE (*CRX) 4 MG/ML INJ IV PUSH (12:14)
[2025-03-03] MEDS: ONDANSETRON INJ 4 MG/2 ML VIAL IV PUSH (12:14)
[2025-03-03 12:25] LABS: INR 1.1; Prothrombin Time 14.2 Seconds (11.1-14.7)
[2025-03-03 12:27] LABS: Partial Thromboplastin Time 29.9 Seconds (22.3-36.8)
[2025-03-03 12:27] LABS: Add Urine Microscopic? YES; Appearance Urine Clear (Clear); Glucose Urine UA Negative (Negative); Leukocyte Esterase Ur 1+ LEU/UL (Negative); Need Manual Microscopic Reviewed; Nitrate Urine Negative (Negative); Non Pathogenic Casts 0-2; Specific Grav Ur 1.028 (1.001-1.035)
[2025-03-03 12:31] LABS: Alanine Aminotransferase 13 U/L (6-50); Albumin Level 4.3 g/dL (3.5-5.1); Alkaline Phosphatase 73 U/L (38-126); Anion Gap 8 mmol/L (4-12); Aspartate Amino Transferase 26 U/L (17-59); Bilirubin,Total 0.5 mg/dL (0.2-1.3); Blood Urea Nitrogen 22 mg/dL (9-20); Calcium 10.3 mg/dL (8.4-10.2); Carbon Dioxide 25 mmol/L (22-30); Chloride 106 mmol/L (98-107); Estimated CRCL calculation 56 ml/min; Estimated Glomerular Filt Rate 49; Glucose 115 mg/dL (65-110); Lipase 71 U/L (23-300); Potassium 4.5 mmol/L (3.4-5.0); Sodium 139 mmol/L (137-145); Total Protein 7.3 g/dL (6.3-8.2)
[2025-03-03] MEDS: KETOROLAC 15 MG/ML VIAL (*BKC) IV PUSH (12:55)
--- NOTE | 2025-03-03 13:56 | ED_ITS ---
HPI - General Adult General Chief complaint: Abdominal Pain Stated complaint: RLQ pain since this am Time Seen by Provider: 03/03/25 11:41 History of Present Illness HPI narrative: Patient is a 65-year-old male who presents ER with right-sided abdominal pain. Began having pain in his right back last night around 1:00 a.m.. Is since progressed to right lower quadrant abdominal pain. It comes in waves associated with nausea. Has history of having pain on left side but has never passed a kidney stone. No known renal cysts. He does still have his appendix. No diarrhea. No alleviating factors other than rest. Related Data Home Medications ?Medication ?Instructions ?Recorded ?Confirmed ?Last Taken ?Type levetiracetam 750 mg tablet 750 mg PO DAILY 01/25/20 1 03/26/19 02/01/20 History lisinopril 20 mg tablet 20 mg PO DAILY 01/25/2001/1402/01/20 History tamsulosin 0.4 mg capsule 0.4 mg PO DAILY 01/25/2002/0202/01/20 History finasteride 5 mg 11/25/21 Unknown Histo ry levetiracetam 750 mg 11/25/21 Unknown His tory lisinopril 11/25/21 Unknown History tamsulosin 0.4 mg 11/25/21 Unknown His tory Allergies Allergy/AdvReac Type Severity Reaction Status Date / Time Bumble Bee Allergy Mild LOCALIZED Uncoded 06/28/24 12:06 SWELLING Review of Systems 2 Review of Systems: All systems reviewed & are unremarkable except as noted in HPI and below Constitutional: Constitutional: Reports no additional constitutional complaints Cardiovascular: Cardiovascular: Reports no additional cardiovascular complaints Respiratory: Respiratory: Reports no additional respiratory complaints Gastrointestinal: Gastrointestinal: Reports no additional gastrointestinal complaints Genitourinary: Genitourinary: Reports no additional male genitourinary complaints [facility] Past Medical History Medical History (Updated 03/03/25 @ 14:04 by Dmitri Perdue MD) BPH (benign prostatic hyperplasia) Seizure HTN (hypertension) Social History Social History (System 06/28/24 @ 12:06 by Ethan Oliveira) Alcohol intake: current Drinks per week: 1 Living arrangements: with family Gender identity (if verbalized by the patient): Male Spiritual care concerns: No Exam 2 Narrative: GENERAL: Uncomfortable-appearing, well-nourished, and in no acute distress. HEAD: Normocephalic, atraumatic. ENT: Mucous membranes moist. NECK: Supple. CHEST: Clear to auscultation. No respiratory distress. HEART: Regular rate and rhythm. Normal peripheral pulses. ABDOMEN: Soft, TTP RLQ with guarding, nondistended. EXTREMITIES: Normal range of motion. No edema. SKIN: Warm, dry, no rash. NEURO: Alert and oriented x3. PSYCH: Normal mood and affect. Course Course Emergency Course: Discussed passing renal stone. Patient also has some large gallstones that he is educated about. He should pass his stones soon. He received 1 L IV fluid. Pain improving with low-dose Toradol. Discharge home and follow-up with PCP. He has Flomax already. Vital Signs Vital signs: Vital Signs Temperature 97.9 F 03/03/25 11:16 Pulse Rate 55 L 03/03/25 11:16 Respiratory Rate 18 03/03/25 11:16 Blood Pressure 143/70 H 03/03/25 11:16 Pulse Oximetry 100 03/03/25 11:16 Oxygen Delivery Room Air 03/03/25 11:16 Temperature 97.9 F 03/03/25 11:16 Pulse Rate 55 L 03/03/25 11:16 Respiratory Rate 18 03/03/25 11:16 Blood Pressure 143/70 H 03/03/25 11:16 Pulse Oximetry 100 03/03/25 11:16 Oxygen Delivery Room Air 03/03/25 11:16 MDM Differential Diagnosis Differential Diagnosis: Appendicitis, kidney stones, diverticulitis, UTI, AAA Lab Data [facility] Lab Attestation statement: I personally reviewed the patient's lab results. 03/03/25 12:04 03/03/25 12:04 Labs: Lab Results 03/03/25 03/03/25 Range/Units 12:04 12:08 WBC 4.4 L (4.5-10.0) K/mm3 RBC 4.43 L (4.6-6.20) M/mm3 Hgb 12.1 L (14.0-18.0) g/dL Hct 37.7 L (42.0-52.0) % MCV 85.1 (80-100) fl MCH 27.3 (26-34) pg MCHC 32.1 (32-36) g/dl RDW 13.6 (11.5-14.5) % Plt Count 213 (150-375) k/mm3 MPV 9.5 (7.4-10.4) fl Immature Gran % (Auto) 1.6 H (0-0.5) % Neut % (Auto) 66.6 (45.5-73.1) % Lymph % (Auto) 17.8 L (18.3-44.2) % Drew % (Auto) 13.8 H (2.6-8.5) % Eos % (Auto) 0.2 (0-4.4) % Baso % (Auto) 0.0 L (0.2-1.2) % Lymph # (Auto) 0.79 L (0.9-3.2) K/mm3 Drew # (Auto) 0.6 (0.1-0.6) K/mm3 Eos # (Auto) 0.0 (0-0.3) K/mm3 Baso # (Auto) 0.0 (0.0-0.1) K/mm3 Abs Immat Gran (auto) 0.07 H (0.00-0.031) K/mm3 Absolute Neuts (auto) 3.0 (1.3-6.7) K/mm3 Absolute Nucleated RBC 0.000 (0.0-0.012) K/mm3 Nucleated RBC % 0.0 (0.0-0.2) % PT 14.2 (11.1-14.7) Seconds INR 1.1 APTT 29.9 (22.3-36.8) Seconds Sodium 139 (137-145) mmol/L Potassium 4.5 (3.4-5.0) mmol/L Chloride 106 (98-107) mmol/L Carbon Dioxide 25 (22-30) mmol/L Anion Gap 8 (4-12) mmol/L BUN 22 H (9-20) mg/dL Creatinine 1.45 H (0.7-1.3) mg/dL Estim Creat Clear Calc 56 ml/min Estimated GFR 49 L (59 - ) Glucose 115 H (65-110) mg/dL Calcium 10.3 H (8.4-10.2) mg/dL Total Bilirubin 0.5 (0.2-1.3) mg/dL AST 26 (17-59) U/L ALT 13 (6-50) U/L Alkaline Phosphatase 73 (38-126) U/L Total Protein 7.3 (6.3-8.2) g/dL Albumin 4.3 (3.5-5.1) g/dL Lipase 71 (23-300) U/L Urine Color Yellow (Yellow) Urine Appearance Clear (Clear) Urine pH 6.0 (5.0-9.0) Ur Specific [place] 1.028 (1.001-1.035) Urine Protein 1+ H (Negative) mg/dL Urine Glucose (UA) Negative (Negative) mg/dL Urine Ketones Trace H (Negative) mg/dL Ur Blood (Man) 3+ H (Negative) Urine Nitrate Negative (Negative) Urine Bilirubin Negative (Negative) Urine Urobilinogen 1.0 (<2.0) mg/dL Add Ur Microanalysis Reviewed Leukocyte Esterase Rfl 1+ H (Negative) ROSAURA/UL Urine RBC 51-100 H (0-2) /hpf Urine WBC 0-5 (0-3) /hpf Ur Squamous Epith Cells None seen (Few) /hpf Urine Bacteria None seen /hpf Urine Casts 0-2 Imaging Data Radiologist's impression: ITS Impressions Abdomen/Pelvis CT 03/03/25 13:05 IMPRESSION: 1. Again seen are numerous bilateral simple and complex renal cysts now with asymmetric perinephric fluid and stranding about the right kidney suggesting possible right renal cyst rupture. Differential would include less likely acute interstitial pancreatitis or duodenitis. Correlate with lipase levels. Of note, in the absence of noncontrast imaging to assess for enhancement, renal neoplasm cannot be excluded for any of the individual renal lesions with greater than simple fluid attenuation. 2. Tiny bilateral pleural effusions and small pericardial effusion. 3. Minimal amount of nonspecific likely reactive ascites in the deep pelvis. 4. Cholelithiasis without findings of acute cholecystitis or biliary ductal dilation.. 5. Prostatomegaly. ADDENDUM: 03/03/25 1323 ADDENDUM: There is a 3-4 mm stone at the right ureterovesicular junction and although there is only minimal hydronephrosis at the right kidney this could account for the perinephric fluid and stranding. Discharge Plan Discharge Clinical Impression: Ureterolithiasis Patient Disposition: Home Condition: Stable Instructions: Ureteral Stones (ED) Additional Instructions: Return the ER if you have worsening pain, you cannot keep down food/water/medication, or you have additional concerns. Patient Language: Kenyan Prescriptions: New ondansetron 4 mg tablet,disintegrating 4 mg PO Q6H PRN (Reason: nausea and vomiting) Qty: 10 0RF No Action lisinopril 20 mg tablet 20 mg PO DAILY tamsulosin 0.4 mg capsule 0.4 mg PO DAILY levetiracetam 750 mg tablet 750 mg PO DAILY omeprazole 20 mg capsule,delayed release(DR/EC) 20 mg PO DAILY Qty: 30 0RF finasteride 5 mg levetiracetam 750 mg lisinopril tamsulosin 0.4 mg Follow-up/Referrals: Kip Abreu MD [Primary Care Provider, Internal Medicine] - 1 Week Zaire Byrne MD [Physician, Urology] - 1 Week
[2025-03-03 14:17] VITALS: BP 120/70; PULSE 56; RESP 16; TEMP 36.3; O2SAT 95
== END 2025-03-03 14:20 | disposition home or self-care (01) ==
PROVIDERS: Emergency Provider Emergency Medicine; PCP Internal Medicine
DX: N20.1 Calculus of ureter (principal); I10 Essential (primary) hypertension
CPT/HCPCS: 36415; 74177; 80053; 81001; 83690; 85025; 85610; 85730; 87086; 96361; 96374; 96375; 99284; J1885; J2270; J2405; J7030; Q9967

== ENCOUNTER 2025-03-05 14:46 | Emergency (ER) | payer OTHER, SELFPAY ==
--- NOTE | ~2025-03-05 | CT_ITS ---
EXAMINATION: CT abdomen pelvis w con DATE: 03/05/2025 18:23 INDICATION: Right lower quadrant pain. Possible hernia. TECHNIQUE: Computed tomography (CT) of the abdomen and pelvis was performed 100 cc intravenous contrast. Automated exposure control and iterative reconstruction technique were employed. The dose-length product was 458.42 mGy-cm. COMPARISON: CT abdomen and pelvis dated 03/03/2025 FINDINGS: Lung bases do not show acute findings. Platelike atelectasis of lung bases. Cardiomegaly. Small pericardial effusion. Small bilateral pleural effusion. Hepatomegaly. Calcified gallstone impacting the neck of gallbladder. Noncalcified gallstone of the body of the gallbladder. Bile ducts are normal in size. Numerous bilateral renal cysts suggests polycystic kidney disease. No evidence of small bowel obstruction. Significant fecal impaction of the proximal colon. Normal size appendix. Diverticulosis of sigmoid colon. No evidence of abdominal or pelvic hernia. IMPRESSION: 1. Cardiomegaly with minimal bilateral pleural effusion and pericardial effusion. 2. Gallstones in the gallbladder with calcified stone impacting neck of the gallbladder. No evidence of acute cholecystitis. 3 polycystic changes of both kidneys. 4. Fecal impaction of proximal colon. No evidence of abdominal or pelvic hernia. 5. Overall, no significant change from previous exam of 03/03/2025. Reviewed, dictated and finalized at location T. MILL OPERATOR IMPRESSION: 1. Cardiomegaly with minimal bilateral pleural effusion and pericardial effusio n. 2. Gallstones in the gallbladder with calcified stone impacting neck of the gal lbladder. No evidence of acute cholecystitis. 3 polycystic changes of both kidneys. 4. Fecal impaction of proximal colon. No evidence of abdominal or pelvic hernia . 5. Overall, no significant change from previous exam of 03/03/2025.
--- OUTSIDE RECORDS SUMMARY | 2025-03-05 14:48 | XMS_ITS | Clinical Summary ---
Author Organization [facility] Address [facility] [place] [address] Care Team Providers Care Coding Quality Coordinator Name Role Phone Unavailable Primary Care Provider [...]
--- OUTSIDE RECORDS SUMMARY | 2025-03-05 14:48 | XMS_ITS | Encounter Summary ---
Author Organization 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
--- OUTSIDE RECORDS SUMMARY | 2025-03-05 14:48 | XMS_ITS | Encounter Summary ---
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
--- OUTSIDE RECORDS SUMMARY | 2025-03-05 14:48 | XMS_ITS | Encounter Summary ---
Author Organization 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
--- OUTSIDE RECORDS SUMMARY | 2025-03-05 14:48 | XMS_ITS | Encounter Summary ---
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
--- OUTSIDE RECORDS SUMMARY | 2025-03-05 14:48 | XMS_ITS | Encounter Summary ---
Author Organization [facility] Address [address] [place] [address] Phone Care Team Providers Care Procurement Accountant Name Role Phone Kip Abreu MD Primary Care Provider [phone] Encounter Details Date Type Department Care Team (Latest Contact Info) Description 01/03/2020 Orders Only [facility] Scanning, Provider Social History Tobacco Use Types Packs/Day Years Used Date Smoking Tobacco: Former Smokeless Tobacco: Never Comments:Ocassionally while in Sex and Gender Information Value Date Recorded Sex Assigned at Not on file 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
--- OUTSIDE RECORDS SUMMARY | 2025-03-05 14:48 | XMS_ITS | Clinical Summary ---
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 Gender Identity Not on file Sexual Orientation Not on file Last Filed Vital Signs Vital Sign Reading Time Taken Comments Blood Pressure 116/79 10/08/2023 2:12 PM CDT Pulse 83 10/08/2023 2:12 PM CDT Temperature 36.3 C (97.3 F) 10/08/2023 2:12 PM CDT Respiratory Rate 18 02/26/2023 2:06 PM MEDICAL HOSPITAL SALES Oxygen Saturation 95% 10/08/2023 2:12 PM CDT [...] 02/05/2025 Zoster Vaccine Completed 05/20/2018, 10/26/2017 Insurance [email or web address] OPEN ACCESS HE[employer]LINK OPEN ACCESS HE[employer]LINK OPEN ACCESS Care Teams Ice Cream Scooper Relationship Specialty Start Date End Date Kip Abreu MD [address] [place] [address] PCP - General 06/03/17
[2025-03-05 14:59] VITALS: BP 135/63; PULSE 90; RESP 18; TEMP 36.8; O2SAT 96
[2025-03-05 17:15] LABS: Add Urine Microscopic? YES; Appearance Urine Clear (Clear); Glucose Urine UA Negative (Negative); Leukocyte Esterase Ur 1+ LEU/UL (Negative); Need Manual Microscopic Reviewed; Nitrate Urine Negative (Negative); Non Pathogenic Casts 0-2; Specific Grav Ur 1.022 (1.001-1.035)
--- NOTE | 2025-03-05 17:15 | ED_ITS ---
HPI - Male Genitourinary General Chief complaint: Urogenital-Male Stated complaint: groin swelling, fever, kidney stone Time Seen by Provider: 03/05/25 16:53 Source: patient Mode of arrival: ambulatory Limitations: no limitations History of Present Illness HPI Narrative: This is a 65-year-old male with history of hypertension, seizure disorder who presents to the ED for right groin/right lower quadrant abdominal pain. Patient states that earlier this week, he was diagnosed with a right-sided kidney stone. He states that this morning, he began to experience right lower quadrant and right groin pain there is a sharp sensation. Denies dysuria, hematuria. He has never had this pain before. No prior abdominal surgeries. Also notes a temperature of 100.0? at home. Related Data Home Medications ?Medication ?Instructions ?Recorded ?Confirmed ?Last Taken ?Type levetiracetam 750 mg tablet 750 mg PO DAILY 01/25/20 1 03/26/19 02/01/20 History lisinopril 20 mg tablet 20 mg PO DAILY 01/25/2001/1402/01/20 History tamsulosin 0.4 mg capsule 0.4 mg PO DAILY 01/25/2002/0202/01/20 History finasteride 5 mg 11/25/21 Unknown Histo ry levetiracetam 750 mg 11/25/21 Unknown His tory lisinopril 11/25/21 Unknown History tamsulosin 0.4 mg 11/25/21 Unknown His tory Allergies Allergy/AdvReac Type Severity Reaction Status Date / Time Bumble Bee Allergy Mild LOCALIZED Uncoded 06/28/24 12:06 SWELLING Review of Systems 2 Review of Systems: All systems reviewed & are unremarkable except as noted in HPI and below PMFSH Past Medical History Medical History BPH (benign prostatic hyperplasia) Seizure HTN (hypertension) Social History Social History Alcohol intake: current Drinks per week: 1 Living arrangements: with family Gender identity (if verbalized by the patient): Male Spiritual care concerns: No Exam 2 Narrative: APPEARANCE: No acute distress, nontoxic, resting in bed EYES: EOMI HEENT: Normocephalic, atraumatic, OMM RESPIRATORY: No respiratory distress Clear to auscultation bilaterally with no rhonchi wheezing or rales. CARDIOVASCULAR: Regular rate and rhythm without murmurs rubs or gallops. ABDOMINAL: Soft, nontender, nondistended, no rebound or guarding : Tenderness over the right ITB band into the right lower quadrant, no palpable hernias MUSCULOSKELETAl: Moves all extremities. No clubbing, cyanosis or edema. NEURO: Awake and alert. Following commands, speech normal, no focal deficits SKIN:: Warm, dry. No rashes lesions or abrasions PSYCHIATRIC: Normal affect/mood, Course Vital Signs Vital signs: Vital Signs Temperature 98.2 F 03/05/25 14:59 Pulse Rate 90 03/05/25 14:59 Respiratory Rate 18 03/05/25 14:59 Blood Pressure 135/63 03/05/25 14:59 Pulse Oximetry 96 03/05/25 14:59 Oxygen Delivery Room Air 03/05/25 14:59 Temperature 98.2 F 03/05/25 14:59 Pulse Rate 90 03/05/25 14:59 Respiratory Rate 18 03/05/25 14:59 Blood Pressure 135/63 03/05/25 14:59 Pulse Oximetry 96 03/05/25 14:59 Oxygen Delivery Room Air 03/05/25 14:59 MDM MDM Narrative Medical decision making narrative: 65-year-old male Presenting for right groin pain. On initial evaluation patient was in no acute distress afebrile, hemodynamic stable. Differentials include but are not limited to: Hernia, ureterolithiasis, UTI Notable exam findings: Tenderness over the right ITB band/spermatic cord. I personally reviewed the patient's lab result. Notable lab findings: CBC with stable anemia. CMP demonstrated a mild SHAUN. UA showed hematuria without UTI. CT abdomen/pelvis showed no acute process, noted 3-4 mm stone within the bladder. No hernias identified Patient's pain may be referred pain from his ureterolithiasis. There is no hernia identified. His pain was better after Toradol. Given his SHAUN, he was given 1 L NS bolus. He was educated on adequate p.o. hydration. He will be scheduled for repeat BMP in a few days after p.o. hydration. He was advised follow-up with his PCP in the next week for re-evaluation. Patient was agreeable to this plan. Given strict return precautions. Differential Diagnosis Differential Diagnosis: Hernia, ureterolithiasis, UTI Lab Data 03/05/25 17:23 03/05/25 17:23 Labs: Lab Results 03/05/25 03/05/25 Range/Units 16:53 17:23 WBC 3.5 L (4.5-10.0) K/mm3 RBC 4.16 L (4.6-6.20) M/mm3 Hgb 11.3 L (14.0-18.0) g/dL Hct 35.4 L (42.0-52.0) % MCV 85.1 (80-100) fl MCH 27.2 (26-34) pg MCHC 31.9 L (32-36) g/dl RDW 14.3 (11.5-14.5) % Plt Count 187 (150-375) k/mm3 MPV 9.5 (7.4-10.4) fl Immature Gran % (Auto) 1.2 H (0-0.5) % Neut % (Auto) 32.5 L (45.5-73.1) % Lymph % (Auto) 39.5 (18.3-44.2) % [place] % (Auto) 26.2 H (2.6-8.5) % Eos % (Auto) 0.3 (0-4.4) % Baso % (Auto) 0.3 (0.2-1.2) % Lymph # (Auto) 1.37 (0.9-3.2) K/mm3 [place] # (Auto) 0.9 H (0.1-0.6) K/mm3 Eos # (Auto) 0.0 (0-0.3) K/mm3 Baso # (Auto) 0.0 (0.0-0.1) K/mm3 Abs Immat Gran (auto) 0.04 H (0.00-0.031) K/mm3 Absolute Neuts (auto) 1.1 L (1.3-6.7) K/mm3 Absolute Nucleated RBC 0.000 (0.0-0.012) K/mm3 Nucleated RBC % 0.0 (0.0-0.2) % Sodium 140 (137-145) mmol/L Potassium 4.4 (3.4-5.0) mmol/L Chloride 108 H (98-107) mmol/L Carbon Dioxide 25 (22-30) mmol/L Anion Gap 7 (4-12) mmol/L BUN 20 (9-20) mg/dL Creatinine 2.01 H (0.7-1.3) mg/dL Estim Creat Clear Calc 41 ml/min Estimated GFR 34 L (59 - ) Glucose 103 (65-110) mg/dL Calcium 10.2 (8.4-10.2) mg/dL Total Bilirubin 0.5 (0.2-1.3) mg/dL AST 21 (17-59) U/L ALT 10 (6-50) U/L Alkaline Phosphatase 62 (38-126) U/L Total Protein 7.0 (6.3-8.2) g/dL Albumin 4.1 (3.5-5.1) g/dL Urine Color Yellow (Yellow) Urine Appearance Clear (Clear) Urine pH 5.0 (5.0-9.0) Ur Specific [place] 1.022 (1.001-1.035) Urine Protein Negative (Negative) mg/dL Urine Glucose (UA) Negative (Negative) mg/dL Urine Ketones Trace H (Negative) mg/dL Ur Blood (Man) 2+ H (Negative) Urine Nitrate Negative (Negative) Urine Bilirubin Negative (Negative) Urine Urobilinogen 0.2 (<2.0) mg/dL Add Ur Microanalysis Reviewed Leukocyte Esterase Rfl 1+ H (Negative) ROSAURA/UL Urine RBC 21-50 H (0-2) /hpf Urine WBC 0-5 (0-3) /hpf Ur Squamous Epith Cells None seen (Few) /hpf Urine Bacteria None seen /hpf Urine Casts 0-2 Imaging Data Radiologist's impression: ITS Impressions Abdomen/Pelvis CT 03/05/25 18:25 IMPRESSION: 1. Cardiomegaly with minimal bilateral pleural effusion and pericardial effusion. 2. Gallstones in the gallbladder with calcified stone impacting neck of the gallbladder. No evidence of acute cholecystitis. 3 polycystic changes of both kidneys. 4. Fecal impaction of proximal colon. No evidence of abdominal or pelvic hernia. 5. Overall, no significant change from previous exam of 03/03/2025. Discharge Plan Discharge Clinical Impression: Rt groin pain, Ureterolithiasis Patient Disposition: Home Condition: Stable Instructions: Antibiotic Form Additional Instructions: Take Tylenol for your pain. Follow-up with your PCP in the next week for re- evaluation. Please drink plenty of fluids over the next few days. Have repeat BMP drawn in the next few days. Return to the ED for any new or worsening symptoms. Patient Language: Sinhala Prescriptions: No Action lisinopril 20 mg tablet 20 mg PO DAILY tamsulosin 0.4 mg capsule 0.4 mg PO DAILY levetiracetam 750 mg tablet 750 mg PO DAILY omeprazole 20 mg capsule,delayed release(DR/EC) 20 mg PO DAILY Qty: 30 0RF finasteride 5 mg levetiracetam 750 mg lisinopril tamsulosin 0.4 mg ondansetron 4 mg tablet,disintegrating 4 mg PO Q6H PRN (Reason: nausea and vomiting) Qty: 10 0RF Other Ambulatory Orders: Basic Metabolic Panel (Routine) Timeframe: 3 Days Location: Determined by Patient Ordered By: Michael Ponce Follow-up/Referrals: Kip Abreu MD [Primary Care Provider, Internal Medicine]
[2025-03-05 17:29] LABS: Hematocrit 35.4 % (42.0-52.0); Hemoglobin 11.3 g/dL (14.0-18.0); Immature Granulocyte Percent A 1.2 % (0-0.5); Lymphocytes Absolute Auto 1.37 K/mm3 (0.9-3.2); Mean Corpuscular HGB Conc 31.9 g/dl (32-36); Mean Corpuscular Hemoglobin 27.2 pg (26-34); Mean Corpuscular Volume 85.1 fl (80-100); Nucleated Red Blood Cells Absolute Auto 0.000 K/mm3 (0.0-0.012); Nucleated Red Blood Cells Perc 0.0 % (0.0-0.2); Platelet Count Result 187 k/mm3 (150-375); Red Blood Count 4.16 M/mm3 (4.6-6.20); White Blood Count 3.5 K/mm3 (4.5-10.0)
[2025-03-05 17:55] LABS: Alanine Aminotransferase 10 U/L (6-50); Albumin Level 4.1 g/dL (3.5-5.1); Alkaline Phosphatase 62 U/L (38-126); Anion Gap 7 mmol/L (4-12); Aspartate Amino Transferase 21 U/L (17-59); Bilirubin,Total 0.5 mg/dL (0.2-1.3); Blood Urea Nitrogen 20 mg/dL (9-20); Calcium 10.2 mg/dL (8.4-10.2); Carbon Dioxide 25 mmol/L (22-30); Chloride 108 mmol/L (98-107); Estimated CRCL calculation 41 ml/min; Estimated Glomerular Filt Rate 34; Glucose 103 mg/dL (65-110); Potassium 4.4 mmol/L (3.4-5.0); Sodium 140 mmol/L (137-145); Total Protein 7.0 g/dL (6.3-8.2)
[2025-03-05] MEDS: SODIUM CHLORIDE 0.9% IV 1,000 ML 999 ML IV CONT (18:00)
[2025-03-05] MEDS: KETOROLAC 30 MG/ML VIAL (*BKC) IV PUSH (18:00)
[2025-03-05 20:28] VITALS: BP 132/84; PULSE 67; RESP 16; TEMP 36.8; O2SAT 94
[2025-03-07 10:04] LABS: Prostate Specific Antigen 2.7 ng/mL (< OR = 4.0)
== END 2025-03-05 20:10 | disposition home or self-care (01) ==
PROVIDERS: Family Medicine; Emergency Provider Student in an Organized Health Care Education/Training Program; PCP Internal Medicine
DX: N20.1 Calculus of ureter (principal); I10 Essential (primary) hypertension
CPT/HCPCS: 36415; 74177; 80053; 81001; 84153; 85025; 87086; 96361; 96374; 99284; G0103; J1885; J7030; Q9967

== ENCOUNTER 2025-03-10 14:00 | Outpatient (CLI) | payer OTHER, SELFPAY ==
--- OUTSIDE RECORDS SUMMARY | 2025-03-10 14:04 | XMS_ITS | Encounter Summary ---
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
--- OUTSIDE RECORDS SUMMARY | 2025-03-10 14:04 | XMS_ITS | Clinical Summary ---
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 Gender Identity Not on file Sexual Orientation Not on file Last Filed Vital Signs Vital Sign Reading Time Taken Comments Blood Pressure 116/79 10/08/2023 2:12 PM CDT Pulse 83 10/08/2023 2:12 PM CDT Temperature 36.3 C (97.3 F) 10/08/2023 2:12 PM CDT Respiratory Rate 18 02/26/2023 2:06 PM BREAKER BOSS Oxygen Saturation 95% 10/08/2023 2:12 PM CDT [...] 02/05/2025 Zoster Vaccine Completed 05/20/2018, 10/26/2017 Insurance [employer] OPEN ACCESS [employer] OPEN ACCESS [employer] OPEN ACCESS Care Teams Vocational Nurse Lvn Relationship Specialty Start Date End Date Kip Abreu MD [address] [place] [address] PCP - General 06/03/17
--- OUTSIDE RECORDS SUMMARY | 2025-03-10 14:04 | XMS_ITS | Encounter Summary ---
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
--- OUTSIDE RECORDS SUMMARY | 2025-03-10 14:04 | XMS_ITS | Clinical Summary ---
Author Organization [facility] Address [facility] [place] [address] Care Team Providers Care Construction Trench Digger Name Role Phone Unavailable Primary Care Provider [...]
--- OUTSIDE RECORDS SUMMARY | 2025-03-10 14:04 | XMS_ITS | Encounter Summary ---
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
--- OUTSIDE RECORDS SUMMARY | 2025-03-10 14:04 | XMS_ITS | Encounter Summary ---
Author Organization [facility] Address [address] [place] [address] Phone Care Team Providers Care Methods Engineer Name Role Phone Kip Abreu MD Primary Care Provider [phone] Encounter Details Date Type Department Care Team (Latest Contact Info) Description 12/14/2019 Orders Only [facility] Scanning, Provider Social History Tobacco Use Types Packs/Day Years Used Date Smoking Tobacco: Former Smokeless Tobacco: Never Comments:Ocassionally while in Sex and Gender Information Value Date Recorded Sex Assigned at Not on file 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
--- OUTSIDE RECORDS SUMMARY | 2025-03-10 14:04 | XMS_ITS | Encounter Summary ---
Author Organization [facility] Address [address] [place] [address] Phone Care Team Providers Care Division Order Technician Name Role Phone Kip Abreu MD Primary Care Provider [phone] Encounter Details Date Type Department Care Team (Latest Contact Info) Description 01/03/2020 Orders Only [facility] Scanning, Provider Social History Tobacco Use Types Packs/Day Years Used Date Smoking Tobacco: Former Smokeless Tobacco: Never Comments:Ocassionally while in Sex and Gender Information Value Date Recorded Sex Assigned at Not on file 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
[2025-03-10 15:28] LABS: Hematocrit 35.1 % (42.0-52.0); Hemoglobin 11.1 g/dL (14.0-18.0); Mean Corpuscular HGB Conc 31.6 g/dl (32-36); Mean Corpuscular Hemoglobin 27.1 pg (26-34); Mean Corpuscular Volume 85.6 fl (80-100); Platelet Count Result 218 k/mm3 (150-375); Red Blood Count 4.10 M/mm3 (4.6-6.20); White Blood Count 2.2 K/mm3 (4.5-10.0)
[2025-03-10 15:40] LABS: Alanine Aminotransferase 10 U/L (6-50); Albumin Level 4.1 g/dL (3.5-5.1); Alkaline Phosphatase 55 U/L (38-126); Anion Gap 6 mmol/L (4-12); Aspartate Amino Transferase 18 U/L (17-59); Bilirubin,Total 0.3 mg/dL (0.2-1.3); Blood Urea Nitrogen 18 mg/dL (9-20); Calcium 10.3 mg/dL (8.4-10.2); Carbon Dioxide 27 mmol/L (22-30); Chloride 108 mmol/L (98-107); Estimated Glomerular Filt Rate > 60; Glucose 95 mg/dL (65-110); Potassium 4.3 mmol/L (3.4-5.0); Sodium 141 mmol/L (137-145); Total Protein 7.0 g/dL (6.3-8.2)
== END 2025-03-10 14:01 | disposition home or self-care (01) ==
PROVIDERS: PCP Internal Medicine; Visit Provider Internal Medicine
DX: E86.0 Dehydration (principal); D64.9 Anemia, unspecified
CPT/HCPCS: 36415; 80053; 85027